=== PATIENT | female | born 1955 | race Caucasian/White ===

== ENCOUNTER 2024-09-27 08:48 | Emergency (ER) | payer MEDICARE, BC ==
[~2024-09-27] VITALS: Ht 160 cm; Wt 65.9 kg
[~2024-09-27 08:48] MED LIST: CALC-1215 PO; IBUP200C5 PO; LACT1CAP73 PO; ZOF4T PO; [UNRECOGNIZED DRUG - CODE] PO
[2024-09-27 09:00] VITALS: TEMP 103
[2024-09-27] MEDS: acetaminophen 325mg tablet PO ONE (09:09)
[2024-09-27] MEDS: ondansetron 4mg rapidly disintigrating tab PO ONE (09:09)
[2024-09-27] MEDS: ketorolac trometh 15mg/ml vial 15 MG/ML ML IM ONE (10:11)
[2024-09-27 12:26] VITALS: BP 138/92; PULSE 81; RESP 14; O2SAT 99
== END 2024-09-27 12:40 | disposition home or self-care (01) ==
LOC: ER 08:48
DX: J11.1 Influenza due to unidentified influenza virus with other respiratory manifestations (principal); Z20.822 Contact with and (suspected) exposure to COVID-19; I10 Essential (primary) hypertension; Z88.2 Allergy status to sulfonamides; Z88.5 Allergy status to narcotic agent; Z90.49 Acquired absence of other specified parts of digestive tract
CPT/HCPCS: 36415; 87502; 87503; 87811; 96372; 99283; J1885

== ENCOUNTER 2025-08-14 15:04 | Outpatient (CLI) | payer MEDICARE, BC ==
--- NOTE | 2025-08-14 15:57 | RADIOLOGY REPORT ---
EXAM: DI WRIST, COMPLETE (3VW MIN) INDICATION: UPPER EXTREMITY TENDINOPATHY TECHNIQUE:: 4 views of the right wrist COMPARISON: None FINDINGS/IMPRESSION: No radiographic evidence of an acute osseous abnormality. There is no acute fracture, osseous malalignment, or aggressive focal osseous lesion. There is no radiographically apparent joint space narrowing.
== END 2025-08-14 23:59 | disposition home or self-care (01) ==
LOC: RAD 15:04
PROVIDERS: ATTEND Student in an Organized Health Care Education/Training Program
DX: M65.4 Radial styloid tenosynovitis [de Quervain] (principal); M67.98 Unspecified disorder of synovium and tendon, other site; M85.89 Other specified disorders of bone density and structure, multiple sites
CPT/HCPCS: 73110